=== PATIENT | female | born 1975 | race Caucasian/White ===

== ENCOUNTER 2018-04-03 08:21 | Emergency (ER) | payer OTHER, SELFPAY ==
[~2018-04-03] VITALS: Ht 162.6 cm; Wt 68.0 kg
[2018-04-03 08:25] VITALS: BP 128/82
== END 2018-04-03 08:43 | disposition home or self-care (01) ==
LOC: ED 08:36
DX: K02.9 Dental caries, unspecified (principal); Z86.718 Personal history of other venous thrombosis and embolism
CPT/HCPCS: 99283

== ENCOUNTER 2018-08-12 11:08 | Emergency (ER) | payer OTHER ==
[~2018-08-12] VITALS: Ht 162.6 cm; Wt 77.1 kg
[2018-08-12 11:10] VITALS: BP 147/82
[2018-08-12] MEDS ORDERED: HYDROcodone/APAP 5/325 TABLET PO ONE (11:30)
[2018-08-12] MEDS ORDERED: HYDROcodone/APAP 5/325 TABLET ONE (11:36)
== END 2018-08-12 12:25 | disposition home or self-care (01) ==
LOC: ED 11:55
DX: K08.89 Other specified disorders of teeth and supporting structures (principal)
CPT/HCPCS: 99283